=== PATIENT | male | born 1990 | race Caucasian/White ===

== ENCOUNTER → 2018-05-09 17:04 | Outpatient (REF) | payer MEDICAID, SELFPAY ==
[2018-05-09 20:46] LABS: Abs Immature Grans 0.01 k/cumm (0.0-0.09); Absolute Basophil Count 0.02 k/cumm (0.0-0.2); Absolute Eosinophil Count 0.26 k/cumm (0.0-0.7); Absolute Lymphocyte Count 2.63 k/cumm (1.2-3.4); Absolute Monocyte Count 0.37 k/cumm (0.11-0.7); Absolute Neutrophil Count 3.21 k/cumm (1.2-6.7); Basophils % 0.3; HCT 36.9 % (40.0-50.0); HGB 12.7 g/dL (13.5-17.5); Immature Grans % 0.2; Lymphocytes % 40.5; Mean Corp. HGB Concentration 34.4 g/dL (32.0-36.0); Mean Corpuscular Hemoglobin 31.9 pg (27.0-33.0); Mean Corpuscular Volume 92.7 fL (80-95); Mean Platelet Volume 10.3 fL (8.0-11.0); Monocytes % 5.7; Neutrophils % 49.3; Platelet Count 249 x1000/uL (130-400); RBC 3.98 m/cumm (4.50-6.00); RBC Distribution Width 12.3 % (11.8-14.1)
[2018-05-09 21:07] LABS: ALT 17 U/L (12-78); AST 13 U/L (15-37); Albumin 4.2 g/dL (3.4-5.0); Alkaline Phosphatase 51 U/L (46-116); Anion Gap 7.9 mmol/L (3-11); BUN 12 mg/dL (7-18); Bilirubin, Total 0.3 mg/dL (0.2-1.0); C-Reactive Protein 0.08 mg/dL (0.0-0.3); CO2 30.1 mmol/L (21.0-32.0); CREATININE 0.91 mg/dL (0.70-1.30); Calcium 8.7 mg/dL (8.5-10.1); Chloride 105 mmol/L (98-107); Glucose 83 mg/dL (70-100); Potassium 3.7 mmol/L (3.5-5.1); Sodium 143 mmol/L (136-145); TSH (W/Ref FT4) 2.74 uIU/mL (0.358-3.74)
[2018-05-09 22:21] LABS: ESR 6 MM/HR (0-15)
[2018-05-11 15:09] LABS: Lyme Ab w Rflx to Lyme Confirm Negative
[2018-05-12 22:35] LABS: Testosterone, Total 231 ng/dL (240-950)
== END ==
LOC: NCHCN 17:04
PROVIDERS: PCP Family Medicine; Visit Provider Family Medicine
DX: R79.1 Abnormal coagulation profile (principal); F11.10 Opioid abuse, uncomplicated; M25.50 Pain in unspecified joint; R11.0 Nausea
CPT/HCPCS: 80053; 84403; 85652; 84443; 85025; 86140; 86618

== ENCOUNTER → 2018-05-22 13:45 | Outpatient (REF) | payer MEDICAID, SELFPAY ==
[2018-05-22 21:22] LABS: Ferritin 86 ng/mL (8-388); Vitamin B12 543 pg/mL (193-986)
== END ==
LOC: NCHCN 13:45
PROVIDERS: PCP Family Medicine; Visit Provider Family Medicine
DX: R11.0 Nausea (principal); M25.50 Pain in unspecified joint; M79.1 Myalgia
CPT/HCPCS: 82607; 82728

== ENCOUNTER 2018-07-10 15:11 | Outpatient (REF) | payer MEDICAID, SELFPAY ==
[2018-07-10 20:52] LABS: Abs Immature Grans 0.01 k/cumm (0.0-0.09); Absolute Basophil Count 0.02 k/cumm (0.0-0.2); Absolute Eosinophil Count 0.19 k/cumm (0.0-0.7); Absolute Lymphocyte Count 2.36 k/cumm (1.2-3.4); Absolute Monocyte Count 0.26 k/cumm (0.11-0.7); Absolute Neutrophil Count 3.78 k/cumm (1.2-6.7); Basophils % 0.3; Eosinophils % 2.9; HGB 13.3 g/dL (13.5-17.5); Immature Grans % 0.2; Lymphocytes % 35.6; Mean Corp. HGB Concentration 34.1 g/dL (32.0-36.0); Mean Corpuscular Hemoglobin 31.8 pg (27.0-33.0); Mean Corpuscular Volume 93.3 fL (80-95); Mean Platelet Volume 10.2 fL (8.0-11.0); Monocytes % 3.9; Neutrophils % 57.1; Platelet Count 250 x1000/uL (130-400); RBC 4.18 m/cumm (4.50-6.00); RBC Distribution Width 11.8 % (11.8-14.1); Reticulocyte 0.9 % (0.5-2.4); White Blood Cell Count 6.62 k/cumm (4.4-10.8)
== END 2018-07-10 15:31 ==
LOC: NCHCN 15:11
PROVIDERS: PCP Family Medicine; Visit Provider Family Medicine
DX: K62.5 Hemorrhage of anus and rectum (principal); D64.9 Anemia, unspecified
CPT/HCPCS: 85025; 85045